=== PATIENT | female | born 1980 | race Caucasian/White ===

== ENCOUNTER 2017-11-18 14:23 | Emergency (ER) | payer BC ==
[~2017-11-18] VITALS: Ht 157.5 cm; Wt 66.2 kg
[2017-11-18 14:27] VITALS: BP 125/79; PULSE 93; TEMP 36.3; O2SAT 99; Ht 157.5 cm; Wt 66.2 kg
--- NOTE | 2017-11-18 14:54 | EMERGENCY ROOM VISIT NOTE ---
History Report prepared by Cassidy: Finn Gomez Under the Supervision of: Dr. Jacobo Jefferson M.D. First contact with patient: 14:33 Chief Complaint: HEAD INJURY (MINOR) Stated Complaint: HEADACHE, THROWING UP,CONCUSION? History of Present Illness The patient is a 37 year old female who presents to the Emergency Room with complaints of a resolved headache that began at 1400. The patient is accompanied by her father who states that patient was playing floor hockey at [employer]. He reports that the patient collided with someone but continued playing. He states that the patient was wearing a helmet when the accident occurred. Dad reports that the patient was complaining of a frontal headache after the collision. He reports that patient then came off of the floor and became nauseous. Dad states that the patient went to the bathroom and became diaphoretic and experienced an episode of vomiting. He reports that the patient took Advil and reports the patient felt mildly alleviated of symptoms. Source of History: parent Onset: 1400 Position: head Quality: ache Timing: resolved Modifying Factors (Relieving): other (Advil) Associated Symptoms: + diaphoresis, + nausea, + vomiting Review of Systems See HPI for pertinent positives and negatives. A total of ten systems were reviewed and were otherwise negative. Past Medical & Surgical Medical Problems: (1) Deaf Family History Patient reports no known family medical history. Social History Smoking Status: Never Smoker Current/Historical Medications No Active Prescriptions or Reported Meds Physical Exam Vital Signs Date Time Temp Pulse Resp B/P (MAP) Pulse Ox O2 Delivery O2 Flow Rate FiO2 18 14:27 36.3 93 22 125/79 99 Room Air Physical Exam GENERAL: Awake, alert, well-appearing, in no distress HENT: Normocephalic, atraumatic. Oropharynx unremarkable. EYES: Normal conjunctiva. Sclera non-icteric. NECK: Supple. No nuchal rigidity. FROM. No JVD. RESPIRATORY: Clear to auscultation. CARDIAC: Regular rate, normal rhythm. Extremities warm and well perfused. Pulses equal. ABDOMEN: Soft, non-distended. No tenderness to palpation. No rebound or guarding. No masses. RECTAL: Deferred. MUSCULOSKELETAL: Chest examination reveals no tenderness. The back is symmetrical on inspection without obvious abnormality. There is no CVA tenderness to palpation. No joint edema. LOWER EXTREMITIES: Calves are equal size bilaterally and non-tender. No edema. No discoloration. NEURO: Normal sensorium. No sensory or motor deficits noted. Normal cerebellar function with [id number]. Steady gait. SKIN: No rash or jaundice noted. Medical Decision & Procedures ED Course 1443: The patient was evaluated in room A03. A complete history and physical exam was performed. 1450: Discussed results and discharge instructions: Her father verbalized understanding and agreement. The patient is ready for discharge. Medical Decision I reviewed the patient's past medical history, medications, and the nursing notes as described above. The patient's presentation and history were concerning for Minor head injury, concussion, ICH. The patient is a 37-year-old woman, with hearing impairment who presents emergency department with her father after she had a head strike during his [employer] floor hockey match subsequent nausea and vomiting but no LOC per hpi. On arrival the patient is well-appearing with complete resolution of symptoms, afebrile stable vital signs. Patient is neurologically intact. Given the patient's well appearance the fact that the patient was wearing a helmet with no LOC I do not believe that a CT scan is indicated. However given the patient's vomiting I did offer this is an option to the father and patient but both also agreed that this was not necessary at this time. The father reports that he will be accompanying his daughter for the rest of the day and will be able to observe her. Return instructions were provided and the patient will follow-up with her doctor for further clearance to return to sports. Findings and plan for follow-up reviewed with patient. Patient agreeable and d/c 'd per discharge instructions. Medication Reconcilliation Current Medication List: was personally reviewed by me Blood Pressure Screening Patient's blood pressure: Normal blood pressure Impression Primary Impression: Closed head injury Scribe Attestation The scribe's documentation has been prepared under my direction and personally reviewed by me in its entirety. I confirm that the note above accurately reflects all work, treatment, procedures, and medical decision making performed by me. Departure Information Dispostion Home / Self-Care Prescriptions No Active Prescriptions or Reported Meds Referrals No Doctor, Assigned (PCP) Patient Instructions ED Concussion, ED Head Injury Closed, My [facility] Additional Instructions Please follow up with your primary care physician in the next 1-3 days for re- evaluation. Your symptoms were resolved upon arrival to the ED. You may have suffered a mild concussion. Otherwise, your exam did not show signs of an emergent condition at this time. Acetaminophen or ibuprofen for pain as needed. Avoid sensory stimulus if symptoms return. Drink plenty of fluids to ensure hydration. Return to the emergency department for worsening symptoms as described in the accompanying instructions.
== END 2017-11-18 15:05 | disposition home or self-care (01) ==
LOC: C.EDB 14:25 → EDSEX 14:25 → C.EDA 15:05
DX: S09.90XA Unspecified injury of head, initial encounter (principal); W51.XXXA Accidental striking against or bumped into by another person, initial encounter; Y93.69 Activity, other involving other sports and athletics played as a team or group; R11.2 Nausea with vomiting, unspecified; H91.90 Unspecified hearing loss, unspecified ear